=== PATIENT | female | born 1960 | race Caucasian/White ===

== ENCOUNTER 2024-07-28 17:34 | Emergency (ER) | payer OTHER ==
[~2024-07-28] VITALS: Ht 160 cm; Wt 67.1 kg
[2024-07-28] MEDS ORDERED: COZAAR25 MG (18:03)
[2024-07-28] MEDS ORDERED: ADULT LOW DOSE81 M1 (18:03)
[2024-07-28] MEDS ORDERED: TAPAZOLE5 MG (18:03)
[2024-07-28] MEDS ORDERED: VITAMIN K2100 MCG (18:04)
[2024-07-28] MEDS ORDERED: VITAMIN D350 MC4 (18:04)
[2024-07-28] MEDS ORDERED: ENDOMETRIN100 MG (18:04)
[2024-07-28] MEDS ORDERED: ZYRTEC10 M3 (18:04)
[2024-07-28] MEDS ORDERED: CLIMARA1 EAC5 (18:04)
[2024-07-28] MEDS ORDERED: REPATHA SU140 MG/1 M (18:05)
[2024-07-28] MEDS ORDERED: CEFTRIAXONE SODIUM 1,000 MG VIAL IV ONE (19:15)
[2024-07-28 19:27] LABS: PH,URINE 5.5 (5.0-8.0); URINE APPEARANCE Clear; URINE BILIRRUBIN Negative (NEGATIVE); URINE BLOOD Moderate; URINE COLOR Yellow; URINE GLUCOSE Negative (NEGATIVE); URINE LEUKOCYTE Small; URINE NITRATE Negative; URINE PROTEIN Negative (NEGATIVE); URINE UROBILINOGEN 0.2 E.U./dl
[2024-07-28 19:30] LABS: HEMATOCRIT 41.7 % (36.0-45.00); HEMOGLOBIN 13.9 g/dL (12.0-15.00); MEAN CELL VOLUME 84.3 fL (80.00-100.00); MEAN CORPUSCULAR HGB CONC 33.2 g/dl (32.0-36.0); PLATELET COUNT 229 K/uL (150-450); RED BLOOD COUNT 4.95 M/uL (4.00-6.00); RED CELL DISTRIBUTION WIDTH 13.4 % (11.5-14.5)
[2024-07-28 19:31] LABS: URINE BACTERIA 584.5 uL (0.0-1933); URINE EPITHELIAL CELLS 60.7 uL (0.0-38.8); URINE RBC 60.7 uL (0.0-20.8)
[2024-07-28 19:34] LABS: URINE CAST 0.15 uL (0.0-1.40); URINE KETONE 40 (NEGATIVE)
[2024-07-28 19:45] LABS: CALCIUM 8.9 mg/dL (8.5-10.1); CREATININE SERUM 0.95 mg/dL (0.55-1.02); GFR 59.04; POTASSIUM 4.06 mEq/L (3.5-5.1)
[2024-07-28] MEDS ORDERED: CEFDINIR300 MG PO (21:33)
[2024-07-28] MEDS ORDERED: KETOROLAC TROMETHAMINE 60 MG VIAL IM ONE (21:45)
[2024-07-28] MEDS ORDERED: FLUCONAZOLE150 MG PO (21:45)
== END 2024-07-28 22:05 ==
LOC: ER 17:36
PROVIDERS: Nurse Practitioner Family
DX: N89.8 Other specified noninflammatory disorders of vagina (principal); R10.2 Pelvic and perineal pain; I10 Essential (primary) hypertension; E03.8 Other specified hypothyroidism; Z88.8 Allergy status to other drugs, medicaments and biological substances
CPT/HCPCS: 36415; 76830; 96365; 96372; 99284; J0696; J1885